=== PATIENT | male | born 1965 | race Caucasian/White ===

== ENCOUNTER 2016-12-15 05:59 | Day surgery (SDC) | payer OTHER ==
[~2016-12-15] VITALS: Ht 165.1 cm; Wt 64.9 kg
[2016-12-15] MEDS ORDERED: BENTYL (06:36)
[2016-12-15] MEDS ORDERED: OMEPRAZOLE (06:36)
[2016-12-15 06:38] VITALS: Ht 165.1 cm; Wt 64.9 kg
[2016-12-15 06:55] VITALS: BP 108/77; PULSE 69; RESP 18
[2016-12-15] MEDS ORDERED: MIDAZOLAM 1 MG/ML 2 ML INJ ONE ×2 (07:53)
[2016-12-15] MEDS ORDERED: FENTAnyl 50 MCG/ML VIAL ONE (07:53)
[2016-12-15 08:05] VITALS: BP 101/64; PULSE 64; RESP 12
--- NOTE | 2016-12-16 04:37 | GILP ---
DATE OF PROCEDURE: 12/15/2016 NAME OF PROCEDURES: Esophagogastroduodenoscopy and biopsy. SURGEON: Clifton Zapata MD PREOPERATIVE DIAGNOSIS: Abdominal pain. POSTOPERATIVE DIAGNOSES: 1. Hiatal hernia. 2. Gastroesophageal reflux disease. 3. Gastritis. 4. Gastric mucosal biopsies were taken for Helicobacter pylori test. INDICATION FOR THE PROCEDURE: Mr. Killian Cabral is a 51-year-old male patient who had upper abd ominal pain and chronic heartburn, not responding to therapy. The patient was scheduled for endosco pic examination for further evaluation. The procedure and possible complications were well explained to the patient, he understood and conse nted to the procedure. DESCRIPTION OF PROCEDURE: Under the influence of fentanyl and Versed, the gastroscope was carefully introduced into the esophagus and under direct vision, it was advanced to the stomach and through t he pylorus into the duodenal bulb and descending duodenum. FINDINGS: ESOPHAGUS: The patient had hiatal hernia and gastroesophageal reflux disease. STOMACH: He had gastritis. Gastric mucosal biopsies were taken for H. pylori test. DUODENUM: Normal. The patient tolerated the procedure very well and there was no complication from the procedure. At the end of the procedure, he was awake with stable vital signs and he was discharged home to the car e of his family. IMPRESSION: 1. Hiatal hernia. 2. Gastroesophageal reflux disease. 3. Gastritis. 4. Gastric mucosal biopsies were taken for Helicobacter pylori test. PLAN: 1. Continue omeprazole. 2. Bentyl p.r.n. for pain. 3. Abdominal ultrasound for further evaluation of abdominal pain. 4. Await H. pylori test report. Dictated By: CLIFTON GALLOWAY/BRANDO Conf#: [id number] DID#: [id number]
== END 2016-12-15 08:24 | disposition home or self-care (01) ==
LOC: GIL 05:59
PROVIDERS: ATTEND Internal Medicine Gastroenterology
DX: K44.9 Diaphragmatic hernia without obstruction or gangrene (principal); K21.9 Gastro-esophageal reflux disease without esophagitis; K29.70 Gastritis, unspecified, without bleeding
CPT/HCPCS: 43239; 87081; J2250; J3010; Z7610